=== PATIENT | male | born 1995 | race African-American/Black ===

== ENCOUNTER 2020-08-03 18:39 | Emergency (ER) | payer SELFPAY ==
[2020-08-03] MEDS ORDERED: Acetaminophen 500 MG TAB ONE (19:07)
[2020-08-03] MEDS ORDERED: Ondansetron PF 4 MG/2 ML Vial ONE (19:18)
[2020-08-03 19:25] LABS: #Basophils 0.1 thou/uL (0.0-0.2); #Eosinphils 0.3 thou/uL (0.0-0.7); #Lymphocytes 2.5 thou/uL (1.20-3.40); #Monocytes 0.8 thou/uL (0.11-0.59); #Neutrophils 9.1 thou/uL (1.40-6.50); %Basophils 0.8 % (0.0-1.0); %Eosinophils 2.4 % (0.0-10.0); %Lymphocytes 19.7 % (21.0-51.0); Hemoglobin 14.7 g/dL (14.0-18.0); Mean Corpuscular HGB CONC 34.6 g/dL (32.0-36.0); Mean Corpuscular Hemoglobin 32.3 pg (27.0-31.0); Mean Corpuscular Volume 93.4 fL (78.0-98.0); Mean Platelet Volume 8.6 fL (7.4-10.4); Platelet Count 276 thou/uL (130-400); RBC Distribution Width 11.6 % (11.5-14.5); Red Blood Cell (RBC) Count 4.56 mill/uL (4.70-6.10); White Blood Cell (WBC) Count 12.8 thou/uL (4.8-10.8)
--- NOTE | 2020-08-03 19:51 | CT ---
CT OF THE ABDOMEN AND PELVIS WITH IV CONTRAST ONLY. INDICATION: History of laparoscopic small bowel resection for small bowel obstruction with abdominal pain and fev er. COMPARISON: None. FINDINGS: Lung bases are clear. No focal hepatic lesion is evident. The gallbladder, pancreas, and adrenal glands are normal appearin g. The spleen is normal appearing. There is a 7 mm nonobstructing calculus inferior pole of the right kidney. Left kidney is normal appearing. No hydronephrosis is evident. No free fluid or enlarged lymph nodes are evident. The small bowel is of normal caliber. There is a small bowel large bowel anastomotic suture line within the right lower quadrant. The colon is largely decompressed. There is some accentuation of the wall thickness of the colon and rectum wh ich is likely related to the underdistention rather than a proctocolitis. No free fluid is evident. T he bladder is mildly distended. No definite acute osseous abnormality is evident. IMPRESSION: 1. Postsurgical change consistent with partial small bowel resection and ileocolonic anastomosis . There is no evidence to suggest obstruction. No free fluid is evident. 2. Right nephrolithiasis. POS:
[2020-08-03 19:59] LABS: ALT (SGPT) 55 U/L (8-55); AST (SGOT) 26 U/L (5-34); Alkaline Phosphatase 75 U/L (40-110); Anion Gap 11 mmol/L (10-20); BUN (Urea Nitrogen) 8 mg/dL (8.9-20.6); Bilirubin, Total 0.4 mg/dL (0.2-1.2); Calc. Creatinine Clearance 0 mL/min (70-130); Calcium 9.4 mg/dL (7.8-10.44); Carbon Dioxide 28 mmol/L (22-29); Chloride 102 mmol/L (98-107); Globulin 2.9 g/dL (2.4-3.5); Glucose 119 mg/dL (70-105); Lipase 12 U/L (8-78); Potassium 3.3 mmol/L (3.5-5.1); Protein, Total 6.9 g/dL (6.0-8.3); Sodium 138 mmol/L (136-145)
[2020-08-05 01:55] LABS: SARS-CoV-2 PCR by NAA Not Detected (NotDetected)
== END 2020-08-03 20:12 | disposition home or self-care (01) ==
LOC: ERS 18:39
DX: K62.5 Hemorrhage of anus and rectum (principal); R11.0 Nausea
CPT/HCPCS: 36415; 74177; 80053; 83605; 83690; 85025; 87635; 96374; J2405; U0003; U0005

== ENCOUNTER 2020-11-01 09:52 | Outpatient (CLI) | payer OTHER ==
[~2020-11-01 09:52] MED LIST: Iopamidol 370 76% 100 ML VIAL ONE
== END 2020-11-01 09:53 | disposition home or self-care (01) ==
LOC: CT 09:52
PROVIDERS: ATTEND Internal Medicine Gastroenterology
DX: K52.9 Noninfective gastroenteritis and colitis, unspecified (principal); K50.90 Crohn's disease, unspecified, without complications; R63.4 Abnormal weight loss; N20.0 Calculus of kidney; K62.89 Other specified diseases of anus and rectum
CPT/HCPCS: 74178; Q9967

== ENCOUNTER 2022-04-04 15:02 | Emergency (ER) | payer OTHER, SELFPAY ==
[~2022-04-04 15:02] MED LIST changes: -Iopamidol 370 76% 100 ML VIAL ONE; +Iopamidol-370 76% 500 ML 1 ML ONE
[2022-04-04 16:08] LABS: #Basophils 0.1 thou/uL (0.0-0.2); #Eosinphils 0.3 thou/uL (0.0-0.7); #Lymphocytes 2.3 thou/uL (1.20-3.40); #Monocytes 0.9 thou/uL (0.11-0.59); #Neutrophils 8.8 thou/uL (1.40-6.50); %Basophils 0.5 % (0.0-1.0); %Eosinophils 2.2 % (0.0-10.0); %Lymphocytes 18.3 % (21.0-51.0); %Monocytes 7.5 % (0.0-10.0); %Neutrophils 71.5 % (42.0-75.0); Hemoglobin 13.9 g/dL (14.0-18.0); Mean Corpuscular HGB CONC 32.8 g/dL (32.0-36.0); Mean Platelet Volume 9.1 fL (7.4-10.4); Platelet Count 217 thou/uL (130-400); RBC Distribution Width 12.7 % (11.5-14.5); Red Blood Cell (RBC) Count 4.21 mill/uL (4.70-6.10); White Blood Cell (WBC) Count 12.3 thou/uL (4.8-10.8)
[2022-04-04 16:09] LABS: ALT (SGPT) 11 U/L (8-55); AST (SGOT) 13 U/L (5-34); Albumin 4.3 g/dL (3.5-5.0); Alkaline Phosphatase 74 U/L (40-110); Anion Gap 12 mmol/L (10-20); BUN (Urea Nitrogen) 9 mg/dL (8.9-20.6); Bilirubin, Total 0.7 mg/dL (0.2-1.2); Calc. Creatinine Clearance 0 mL/min (70-130); Calcium 9.8 mg/dL (7.8-10.44); Carbon Dioxide 26 mmol/L (22-29); Chloride 103 mmol/L (98-107); Estimated GFR 79; Globulin 3.1 g/dL (2.4-3.5); Glucose 88 mg/dL (70-105); Potassium 4.4 mmol/L (3.5-5.1); Protein, Total 7.4 g/dL (6.0-8.3); Sodium 137 mmol/L (136-145)
[2022-04-04] MEDS ORDERED: Morphine 4 MG/ML VIAL ONE (17:01)
[2022-04-04] MEDS ORDERED: Ondansetron PF 4 MG/2 ML Vial ONE (17:01)
[2022-04-04] MEDS ORDERED: Midazolam HCl 2 mg/2 ml Vial ONE ×2 (19:02→19:44)
[2022-04-04] MEDS ORDERED: Lidocaine 1% PF 5 ML VIAL ONE ×2 (19:31→19:32)
[2022-04-04] MEDS ORDERED: PROPOFOL 20 ML ONE (20:07)
[2022-04-04] MEDS ORDERED: cefTRIAXone\\ROCEPHIN 1 GM VIAL ONE (20:59)
== END 2022-04-04 21:02 | disposition home or self-care (01) ==
LOC: ERS 15:02
DX: K61.1 Rectal abscess (principal); F17.210 Nicotine dependence, cigarettes, uncomplicated
CPT/HCPCS: 36415; 46040; 74177; 80053; 83605; 85025; 87040; 96365; 96375; 96376; J0696; J2250; J2270; J2405; J2704; Q9967

== ENCOUNTER 2022-05-22 07:35 | Emergency (ER) | payer OTHER ==
[2022-05-22 08:48] LABS: #Eosinphils 0.2 thou/uL (0.0-0.7); #Lymphocytes 2.4 thou/uL (1.20-3.40); #Monocytes 0.6 thou/uL (0.11-0.59); #Neutrophils 5.7 thou/uL (1.40-6.50); %Basophils 0.3 % (0.0-1.0); %Eosinophils 2.7 % (0.0-10.0); %Lymphocytes 26.8 % (21.0-51.0); %Monocytes 6.3 % (0.0-10.0); %Neutrophils 63.9 % (42.0-75.0); Hemoglobin 14.2 g/dL (14.0-18.0); Mean Corpuscular HGB CONC 32.7 g/dL (32.0-36.0); Mean Corpuscular Volume 97.6 fl (78.0-98.0); Mean Platelet Volume 9.2 fL (7.4-10.4); Platelet Count 180 thou/uL (130-400); RBC Distribution Width 11.9 % (11.5-14.5); Red Blood Cell (RBC) Count 4.44 mill/uL (4.70-6.10); White Blood Cell (WBC) Count 8.9 thou/uL (4.8-10.8)
[2022-05-22] MEDS ORDERED: Iopamidol 370 76% 100 ML VIAL ONE (08:49)
[2022-05-22] MEDS ORDERED: Ondansetron PF 4 MG/2 ML Vial ONE (08:58)
[2022-05-22] MEDS ORDERED: Morphine 4 MG/ML VIAL ONE (08:58)
[2022-05-22 09:25] LABS: ALT (SGPT) 14 U/L (8-55); AST (SGOT) 12 U/L (5-34); Albumin 4.1 g/dL (3.5-5.0); Alkaline Phosphatase 67 U/L (40-110); Anion Gap 9 mmol/L (10-20); BUN (Urea Nitrogen) 7 mg/dL (8.9-20.6); Bilirubin, Total 0.5 mg/dL (0.2-1.2); Calc. Creatinine Clearance 0 mL/min (70-130); Calcium 9.5 mg/dL (7.8-10.44); Carbon Dioxide 29 mmol/L (22-29); Chloride 103 mmol/L (98-107); Estimated GFR 109; Globulin 2.6 g/dL (2.4-3.5); Glucose 91 mg/dL (70-105); Potassium 4.2 mmol/L (3.5-5.1); Protein, Total 6.7 g/dL (6.0-8.3); Sodium 137 mmol/L (136-145)
[2022-05-22] MEDS ORDERED: Lidocaine 1% w/Epinephrine 1:100K 20 ML VIAL ONE (10:14)
[2022-05-22] MEDS ORDERED: FENTANYL 50 MCG/ML 1 ML VIAL ONE ×2 (10:39→11:07)
== END 2022-05-22 11:43 | disposition home or self-care (01) ==
LOC: ERS 07:35
DX: K61.1 Rectal abscess (principal); F17.210 Nicotine dependence, cigarettes, uncomplicated
CPT/HCPCS: 36415; 72193; 80053; 83605; 85025; 96374; 96375; J2270; J2405; J3010; Q9967

== ENCOUNTER → 2022-06-06 | Emergency (ER) | payer OTHER, SELFPAY | LOC: ERS 10:44 | DX: L02.31 Cutaneous abscess of buttock (principal); F17.210 Nicotine dependence, cigarettes, uncomplicated | CPT/HCPCS: 99282 ==

== ENCOUNTER 2022-07-04 12:49 | Day surgery (SDC) | payer OTHER ==
[2022-07-02 16:06] VITALS: BMI 21.9
[2022-07-04] MEDS ORDERED: Lidocaine Jelly 2% Urojet 10 ML ONE (14:20)
[2022-07-04] MEDS ORDERED: Bupivacaine/Epinephrine 0.25% 30 ML VIAL ONE (14:20)
[2022-07-04] MEDS ORDERED: Fentanyl 250 MCG/5 ML VIAL ONE (14:21)
[2022-07-04] MEDS ORDERED: Midazolam HCl 2 mg/2 ml Vial ONE (14:21)
[2022-07-04] MEDS ORDERED: CEFAZOLIN 2 GM VIAL ONE (14:25)
[2022-07-04] MEDS ORDERED: Sodium Chloride 0.9% 100 ML ONE (14:25)
[2022-07-04] MEDS ORDERED: Dexamethasone 20 MG/5 ML VIAL ONE (14:32)
[2022-07-04] MEDS ORDERED: Lidocaine 1% PF 5 ML VIAL ONE (14:32)
[2022-07-04] MEDS ORDERED: PROPOFOL 200 MG/20 ML VIAL ONE (14:32)
[2022-07-04] MEDS ORDERED: Ketorolac Tromethamine 30 MG/ML VIAL ONE (14:32)
[2022-07-04] MEDS ORDERED: Ondansetron PF 4 MG/2 ML Vial ONE (14:32)
[2022-07-04] MEDS ORDERED: HYDROcodone/Acetaminophen 5/325 mg Tablet ONE (15:53)
== END 2022-07-04 17:10 | disposition home or self-care (01) ==
LOC: SDC 12:49
PROVIDERS: ATTEND Surgery
PROC: 0H88XZZ Division of Buttock Skin, External Approach (ICD-10-PCS; principal; 2022-07-04)
DX: K60.3 Anal fistula (principal); K50.90 Crohn's disease, unspecified, without complications; F17.210 Nicotine dependence, cigarettes, uncomplicated; Z79.620 Long term (current) use of immunosuppressive biologic
CPT/HCPCS: J1100; J1885; J2001; J2250; J2405; J2704; J3010; J3490

== ENCOUNTER 2023-05-24 11:35 | Day surgery (SDC) | payer OTHER ==
[2023-05-22 12:07] VITALS: BMI 23.6
[2023-05-24] MEDS ORDERED: EPINEPHrine 1 MG/ML VIAL ONE (12:15)
[2023-05-24] MEDS ORDERED: Bupivacaine 0.25% HCL 30 ML VIAL ONE (12:15)
[2023-05-24] MEDS ORDERED: Midazolam HCl 2 mg/2 ml Vial ONE ×2 (13:09→13:14)
[2023-05-24] MEDS ORDERED: fentaNYL PF 100 MCG/2 ML SYRINGE ONE (13:09)
[2023-05-24] MEDS ORDERED: CEFAZOLIN 2 GM VIAL ONE (13:12)
[2023-05-24] MEDS ORDERED: Sodium Chloride 0.9% 100 ML ONE (13:13)
[2023-05-24] MEDS ORDERED: Lidocaine 1% PF 5 ML VIAL ONE (13:22)
[2023-05-24] MEDS ORDERED: PROPOFOL 200 MG/20 ML VIAL ONE (13:22)
[2023-05-24] MEDS ORDERED: Ondansetron PF 4 MG/2 ML Vial ONE (13:22)
[2023-05-24] MEDS ORDERED: fentaNYL 50 mcg/mL 1 mL Vial ONE (14:16)
[2023-05-24] MEDS ORDERED: HYDROcodone/Acetaminophen 5/325 mg Tablet ONE (15:00)
== END 2023-05-24 15:30 | disposition home or self-care (01) ==
LOC: SDC 11:35
PROVIDERS: ATTEND Surgery
PROC: 0DBQ0ZZ Excision of Anus, Open Approach (ICD-10-PCS; principal; 2023-05-24)
DX: K60.3 Anal fistula (principal); Z90.49 Acquired absence of other specified parts of digestive tract; Z87.891 Personal history of nicotine dependence
CPT/HCPCS: J0171; J2250; J2405; J2704; J3010; J3490; S0020

== ENCOUNTER 2024-03-29 05:50 | Emergency (ER) | payer OTHER ==
[2024-03-29] MEDS ORDERED: Ondansetron ODT 4 MG TAB ONE (06:07)
[2024-03-29 06:14] LABS: Hematocrit 46.6 % (42.0-52.0); Hemoglobin 16.7 g/dL (14.0-18.0); Mean Corpuscular HGB CONC 35.8 g/dL (32.0-36.0); Mean Corpuscular Hemoglobin 32.9 pg (27.0-31.0); Mean Corpuscular Volume 91.9 fL (78.0-98.0); Mean Platelet Volume 11.3 fL (7.4-10.4); Platelet Count 190 10x3/uL (130-400); RBC Distribution Width 12.9 % (11.5-14.5); Red Blood Cell (RBC) Count 5.07 mill/uL (4.70-6.10)
[2024-03-29] MEDS ORDERED: Famotidine 20 MG TAB ONE (06:14)
[2024-03-29 06:34] LABS: ALT (SGPT) 19 U/L (8-55); AST (SGOT) 22 U/L (5-34); Albumin 4.8 g/dL (3.5-5.0); Alkaline Phosphatase 67 U/L (40-110); Anion Gap 17 mmol/L (10-20); BUN (Urea Nitrogen) 8 mg/dL (8.9-20.6); Bilirubin, Total 1.3 mg/dL (0.2-1.2); Calc. Creatinine Clearance 0 mL/min (70-130); Calcium 9.8 mg/dL (7.8-10.44); Carbon Dioxide 24 mmol/L (22-29); Chloride 105 mmol/L (98-107); Estimated GFR 77; Globulin 2.7 g/dL (2.4-3.5); Glucose 101 mg/dL (70-105); Lipase 21 U/L (8-78); Protein, Total 7.5 g/dL (6.0-8.3); Sodium 142 mmol/L (136-145)
[2024-03-29 06:38] LABS: Anisocytosis SLIGHT = 6-15 cells HPF (0-5); Band 2 % (5-11); Eosinophils 1 % (0-10); Lymphocytes 26 % (21-51); Monocytes 10 % (0-10); Neutrophil 55 % (42-75); Ovalocytes SLIGHT = 2-5 cells HPF (0-1); Platelet Adequacy Comment Platelets Normal; Reactive Lymphocytes 5 % (0-10); Vacuoles SLIGHT
[2024-03-29 07:22] LABS: Troponin I 0.018 ng/mL (< 0.028)
== END 2024-03-29 07:56 | disposition home or self-care (01) ==
LOC: ERS 05:50
DX: N17.9 Acute kidney failure, unspecified (principal); R11.2 Nausea with vomiting, unspecified; R07.89 Other chest pain; F17.210 Nicotine dependence, cigarettes, uncomplicated
CPT/HCPCS: 36415; 71045; 80053; 83690; 84484; 85025; 93005; Q0162

== ENCOUNTER 2025-04-15 10:15 | Emergency (ER) | payer OTHER ==
[2025-04-15] MEDS ORDERED: Ketorolac Tromethamine 30 MG (1 mL) VIAL ONE (11:48)
[2025-04-15] MEDS ORDERED: Pantoprazole 40 MG VIAL ONE (11:48)
[2025-04-15 12:03] LABS: #Basophils 0.09 10x3/uL (0.0-0.2); #Eosinophils 0.12 10x3/uL (0.0-0.7); #Monocytes 0.62 10x3/uL (0.11-0.59); #Neutrophils 4.11 10x3/uL (1.40-6.50); %Basophils 1.0 % (0.0-1.0); %Eosinophils 1.4 % (0.0-10.0); %Lymphocytes 43.4 % (21.0-51.0); %Monocytes 7.1 % (0.0-10.0); %Neutrophils 46.9 % (42.0-75.0); Hematocrit 49.7 % (42.0-52.0); Hemoglobin 17.2 g/dL (14.0-18.0); Mean Corpuscular Hemoglobin 31.3 pg (27.0-31.0); Mean Corpuscular Volume 90.5 fL (78.0-98.0); Platelet Count 181 10x3/uL (130-400); Red Blood Cell (RBC) Count 5.49 mill/uL (4.70-6.10); White Blood Cell (WBC) Count 8.77 10x3/uL (4.8-10.8)
[2025-04-15 12:47] LABS: ALT (SGPT) 25 U/L (Less than 45); AST (SGOT) 48 U/L (11-34); Albumin 5.0 g/dL (3.1-4.5); Alkaline Phosphatase 65 U/L (40-110); Anion Gap 15 mmol/L (10-20); BUN (Urea Nitrogen) 17 mg/dL (8.9-20.6); Bilirubin, Total 1.0 mg/dL (0.3-1.2); Calc. Creatinine Clearance 0 mL/min (70-130); Calcium 10.0 mg/dL (7.8-10.44); Carbon Dioxide 27 mmol/L (22-29); Chloride 103 mmol/L (98-107); Globulin 2.4 g/dL (2.4-3.5); Glucose 87 mg/dL (70-105); Lipase 22 U/L (8-78); Potassium 4.8 mmol/L (3.5-5.1); Sodium 140 mmol/L (136-145)
== END 2025-04-15 13:12 | disposition home or self-care (01) ==
LOC: ERS 10:15
DX: R07.89 Other chest pain (principal); R07.2 Precordial pain; F17.290 Nicotine dependence, other tobacco product, uncomplicated
CPT/HCPCS: 71046; 80053; 83690; 84484; 85025; 85379; 93005; 96374; 96375; J1885; J2470